=== PATIENT | male | born 1940 | race Caucasian/White ===

== ENCOUNTER → 2016-07-30 12:50 | Outpatient (CLI) | payer MEDICARE, BC ==
[2015-12-24 12:34] VITALS: BMI 28.0
[~2016-07-30 12:50] MED LIST: ADVIL200 MG PO; ALEVE220 MG PO
== END | disposition home or self-care (01) ==
LOC: D.US 12:50
DX: M79.605 Pain in left leg (principal)

== ENCOUNTER 2016-12-25 16:48 | Inpatient (IN) | payer MEDICARE, BC ==
[~2016-12-25] VITALS: Ht 165.1 cm; Wt 62.5 kg
--- NOTE | ~2016-12-25 | CN ---
PATIENT NAME:CAS SERNA MEDICAL RECORD: [id number] : 36 LOCATION:D. D.2138 ADMIT DATE: 12/25/16 ACCOUNT: [id number] CONSULTING PHYSICIAN: CRISTIANE KAUR MD REFERRING PHYSICIAN: AVILA VARGAS DO DATE OF CONSULTATION: 12/26/2016 CONSULT REQUESTING PHYSICIAN: Dr. Cas Vargas. REASON FOR CONSULTATION: Abdmf-ee-pyhcdiy hypoxic respiratory failure, dyspnea on exertion. HISTORY OF PRESENT ILLNESS: Mr. Serna is a 76-year-old gentleman who has history of pulmonary fibrosis, secondary pulmonary hypertension. According to the patient, 2 weeks ago, he was visiting his granddaughter and he walked with her without wearing his oxygen, he became severe shortness of breath. The patient's oxygen was put on and the patient did not seek any medical help. He saw his PCP yesterday and noticed the patient has shortness of breath. According to the patient, he has no fever or any chills, no chest pain, no night sweats. He also is having some orthopnea. There is no swelling of the lower extremities. REVIEW OF SYSTEMS: Mainly in the history of present illness. PAST MEDICAL HISTORY: 1. Pulmonary fibrosis. 2. Chronic hypoxic respiratory failure. 3. Secondary pulmonary hypertension. 4. Possible associated asthma. 5. Ex-smoker. 6. History of pulmonary nodule. PAST SURGICAL HISTORY: 1. Appendectomy. 2. Bilateral knee surgery. ALLERGIES: There are no known drug allergies. PRESENT MEDICATIONS: On [employer] is reviewed. PERSONAL AND SOCIAL HISTORY: The patient is an ex-smoker. He is a nondrinker. FAMILY HISTORY: Significant for cardiovascular disease and diabetes. PHYSICAL EXAMINATION: GENERAL: Now, the patient is lying comfortably in bed. He is not in acute distress. VITAL SIGNS: The blood pressure is 106/70, pulse is 61, respiration is 17, temperature 98.1, and SPO2 is 93% on 3 liters nasal cannula. HEENT: Conjunctivae pink, sclerae nonicteric. NECK: Supple, no JVD. CHEST: There are bilateral crackles. No wheezing. HEART: Rhythm regular, normal sound, no murmur. ABDOMEN: Soft. Bowel sounds present. No hepatosplenomegaly. RECTAL: Deferred. CONSULT REPORT [id number] CAS SERNA EXTREMITIES: No cyanosis, no clubbing, no pedal edema. SKIN: Warm, normal turgor. CENTRAL NERVOUS SYSTEM: The patient is awake and alert. There are no obvious cranial nerve abnormality. The gait was not tested. IMAGING: Chest radiograph, there is increased interstitial markings, no acute infiltrates. LABORATORY DATA: CBC; WBC 7, hemoglobin is 13.7, hematocrit 41.8, platelet count is 78. Chemistry; sodium is 139, potassium 4.1, BUN is 16, creatinine 1.2. ProBNP is 5832. IMPRESSION: 1. Tifbo-rj-dmgqzmn hypoxic respiratory failure most likely secondary to; A. Pulmonary edema on the top of B. B. Pulmonary fibrosis consistent with idiopathic pulmonary fibrosis. 2. Pulmonary hypertension. 3. Possible bronchitis with chronic obstructive pulmonary disease exacerbation. 4. History of obstructive sleep apnea. 5. History of pulmonary nodule. RECOMMENDATION: 1. Maximize the nebs medication. 2. Methylprednisolone IV. 3. Empiric antibiotic. 4. Lasix IV. 5. Follow up on the cardiac echo and CTA of the chest. Dr. Jean-Claude last for involving me in the care of Mr. Serna. TRANSINT:[id number] Voice Confirmation ID: [id number] DOCUMENT ID: [id number] CRISTIANE KAUR MD CC: AVILA VARGAS DO [id number] DICTATION DATE: 12/26/16 1345 OPERATING ENGINEER: 12/26/16 1524 ADM IN [place] [id number] [place] [id number]
--- NOTE | ~2016-12-25 | EC ---
PATIENT:JULIANA SERNA DATE OF SERVICE: 12/25/16 SEX: M MEDICAL RECORD: [id number] DATE OF : 36 LOCATION:D.M2 D.213 AGE OF PATIENT: 76 ADMISSION DATE: 12/25/16 REFERRING PHYSICIAN: INTERPRETING PHYSICIAN: MARI DOLAN MD ECHOCARDIOGRAM REPORT ECHO CHARGES 4 ECHO COMPLETE CLINICAL DIAGNOSIS: SOB/CHF ECHOCARDIOGRAPHIC MEASUREMENTS (adult normal given) AC root (d.<3.7cm) 3.5 cm LV Septum d (<1.2 cm> 1.4 cm Valve Excursion 1.9 cm LV Septum (systole) 1.8 cm Left Atria (s.<4.0cm> 2.6 cm LVPW d(<1.2cm) 1.4 cm RV (d.<2.3cm) 3.0 cm LVPW (sytole) 1.8 cm LV diastole(<5.6CM) 4.1 cm MV E-F(>70mm/sec) cm LV systole 2.3 cm LVOT Diameter 1.9 cm MV exc.(>10mm) cm Est.ejection fraction (50-75%) % Pericardial Effusion N DOPPLER: LVIT cm/sec A 78.0 cm/sec E 50.0 cm/sec LA cm/sec RVSP 92.0 mmHg LVOT 76.0 cm/sec AOP1/2T m/s Asc. Ao 112 cm/sec RVOT 58.0 cm/sec RA cm/sec PA 64.0 cm/sec AV Gradient Peak 5.0 mmHg AV Mean 2.5 mmHg AV Area 1.8 cm MV Gradient Peak 2.5 mmHg MV Mean 0.91 mmHg MV Area cm COMMENTS: Recreation Leader: Karina PALACI[address] Road Machinery Inspector: 3 Dr. Orellana TAPE# PACS DATE OF SERVICE: 12/27/2016 Adequate 2D echo, color flow and spectral Doppler, and M-mode. Borderline LVH. LV internal dimensions are normal. Wall motion is normal. EF is equal to 55%. Aortic valve is tricuspid. No stenosis by Doppler interrogation. The left atrium is normal at 2.6 cm. Mitral valve shows no prolapse. Trace MR. Right-sided chambers are dilated. Atcxhutn-ea-zbmurp TR. PA systolic pressures are estimated greater than or equal to 92 mmHg via the continuity equation. TRANSINT:[id number] Voice Confirmation ID: [id number] DOCUMENT ID: [id number] ECHOCARDIOGRAM REPORT [id number] JULIANA SERNA GREGORY A MD CC: [id number] DICTATION DATE: 12/27/16 1003 EASEMENT WORKER: 12/27/16 1048 ADM IN [facility] [address] [place] [id number]
--- NOTE | ~2016-12-25 | CN ---
PATIENT NAME:JULIANA SERNA MEDICAL RECORD: [id number] : 36 LOCATION:D. D.2138 ADMIT DATE: 12/25/16 ACCOUNT: [id number] CONSULTING PHYSICIAN: MARI DOLAN MD REFERRING PHYSICIAN: AVILA VARGAS DO DATE OF CONSULTATION: 12/26/2016 HISTORY OF PRESENT ILLNESS: A 76-year-old gentleman well known to me with a history of pulmonary hypertension, right heart catheterization done approximately a year ago showed no reversibility with adenosine, only fixed obstruction. He has been having progressively worsening dyspnea, actually had an episode of celestine syncope when attempting to walk upstairs without his portable oxygen. General downward course, with increasing O2 demands. We are asked to see him concerning his cardiovascular status. PAST MEDICAL HISTORY: 1. Otherwise includes a history of hypertension. 2. Pulmonary hypertension. 3. Dyslipidemia. 4. Diabetes mellitus. ALLERGIES: None known. SOCIAL HISTORY: , lives in [place] currently, has actually been able to take care of his ADLs, although at a slower pace. He does try to walk on a regular basis for exercise. REVIEW OF SYSTEMS: The patient reports easy bruising but reports no swollen glands. The patient reports no fever, no night sweats, no significant weight gain, no significant weight loss. No significant exercise tolerance. The patient reports no dry eyes, no irritation, no vision change. Patient reports no difficulty hearing and no ear pain. Patient reports no frequent nose bleeds or nose and sinus problems. Patient reports on arm pain on exertion. No shortness of breath while lying down. No history of heart murmur. Patient reports no cough, no wheezing or coughing up blood. Patient reports no abdominal pain, no vomiting. Normal appetite. No diarrhea and not vomiting blood. No nausea and no constipation. Patient reports no incontinence. No difficulty urinating. No hematuria. No increased frequency. Patient reports no muscle aches. No weakness, no arthralgias, no back pain. No swelling of the extremities. Patient reports no abnormal mole, no jaundice, no rashes. Reports no loss of consciousness. No weakness and no numbness. No seizures, dizziness, or headaches. The patient reports no depression, no sleep disturbance, feeling safe in a relationship and no alcohol abuse. Patient reports on fatigue. Reports no runny nose or sinus pressure. No itching, no hives, and no frequent sneezing. PHYSICAL EXAMINATION: GENERAL: Pleasant gentleman who appears stated age, comfortable at rest, on 3 liters O2. HEENT: Normocephalic, atraumatic. NECK: No JVD or bruit. HEART: Regular, loud S2. LUNGS: Fairly good air excursion. ABDOMEN: Soft, nontender. EXTREMITIES: Pulse 2+. No edema. CONSULT REPORT [id number] JULIANA SERNA NEUROLOGIC: Grossly intact. IMPRESSION: Pulmonary hypertension. Fortunately, this was fixed at the time of right heart catheterization, no evidence of coronary artery disease at that time. LV function was normal. I agree with current symptomatic therapy. Further recommendations based on above. TRANSINT:[id number] Voice Confirmation ID: [id number] DOCUMENT ID: [id number] MARI DOLAN MD CC: [id number] DICTATION DATE: 12/26/16928 CLINICAL UNIT COORDINATOR: 12/26/16 1016 ADM IN [facility] [address] [place] [id number]
--- NOTE | 2016-12-25 17:15 | NUR ---
PT RECIEVED TO ROOM FROM ADMISSIONS. RR EVEN AND UNLABORED. PT ON PERSONAL PORTABLE O2. PT DENIES PAIN. PLACED IN SCRUBS AND INTRODUCED SELF. VALUABLES SENT HOME WITH FAMILY. ASSESSMENT AND HX COMPLETED. WILL CTM PT.
[2016-12-25 17:33] VITALS: BP 124/76
--- NOTE | 2016-12-25 17:52 | NUR ---
STARTED PIV TO LEFT AC 22 G X1 STICK. DSNG ADHERED TO SKIN SIGNED AND DATED SWAB CAPS IN USE
[2016-12-25 18:03] LABS: BASOPHILS 0.2 % (0-2); EOSINOPHILS 1.4 % (0-7); HEMATOCRIT 51.3 % (42.0-54.0); HEMOGLOBIN 16.9 g/dL (13.5-17.5); IMMATURE GRANULOCYTES 0.2 % (0-5); LYMPHOCYTES 31.1 % (15-50); MCH 31.5 pg (26.0-34.0); MCHC 32.9 g/dL (31.0-37.0); MCV 95.5 fL (80.0-100.0); MEAN PLATELET VOLUME 10.4 fL (7.4-10.4); MONOCYTES 12.5 % (2-11); NEUTROPHILS 54.6 % (40-80); PLATELET COUNT 197 10x3/uL (130-400); RBC 5.37 10x6/uL (4.20-6.10); RDW 16.5 % (11.5-14.5); WBC 9.3 10x3/uL (4.8-10.8)
[2016-12-25 18:27] LABS: ALBUMIN 3.7 g/dL (3.4-5.0); ANION GAP 15.8 mmol/L (8-16); BILIRUBIN - TOTAL 1.81 mg/dL (0.2-1.3); CALCIUM 9.3 mg/dL (8.5-10.1); CARBON DIOXIDE 26.3 mmol/L (21.0-32.0); CREATININE - SERUM 1.3 mg/dL (0.6-1.3); POTASSIUM - SERUM 4.1 mmol/L (3.5-5.1)
[2016-12-25 18:28] LABS: CKMB 1.8 U/L (0.0-3.6); CREATINE KINASE 90 UL (21-232); TROPONIN-I 0.021 ng/mL (0.000-0.060)
--- NOTE | 2016-12-25 19:43 | NUR ---
PT IN BED. RAISED TEMP IN ROOM PER REQUEST. DENIES FURTHER NEEDS. WILL CONTINUE TO MONITOR.
--- NOTE | 2016-12-26 00:22 | NUR ---
PT RESTING WITH EYES CLOSED. RESP EVEN AND REGULAR. SR UP X2,CALL LIGHT WITHIN REACH.
[2016-12-26 00:30] LABS: CKMB 1.2 U/L (0.0-3.6); CREATINE KINASE 66 UL (21-232); TROPONIN-I < 0.017 ng/mL (0.000-0.060)
[2016-12-26 04:00] VITALS: BP 120/60
[2016-12-26 05:30] LABS: BASOPHILS 0.4 % (0-2); EOSINOPHILS 1.6 % (0-7); HEMATOCRIT 41.8 % (42.0-54.0); HEMOGLOBIN 13.7 g/dL (13.5-17.5); IMMATURE GRANULOCYTES 0.1 % (0-5); LYMPHOCYTES 29.3 % (15-50); MCHC 32.8 g/dL (31.0-37.0); MCV 94.6 fL (80.0-100.0); MEAN PLATELET VOLUME 10.4 fL (7.4-10.4); MONOCYTES 14.5 % (2-11); NEUTROPHILS 54.1 % (40-80); PLATELET COUNT 178 10x3/uL (130-400); RBC 4.42 10x6/uL (4.20-6.10); RDW 16.2 % (11.5-14.5)
[2016-12-26 06:19] LABS: ALKALINE PHOSPHATASE 64 U/L (46-116); BILIRUBIN - TOTAL 1.37 mg/dL (0.2-1.3); CALC OSMOLALITY 278 mosm/kg (275-300); CALCIUM 8.1 mg/dL (8.5-10.1); CARBON DIOXIDE 24.2 mmol/L (21.0-32.0); CHLORIDE - SERUM 108 mmol/L (98-107); CKMB 1.1 U/L (0.0-3.6); CREATINE KINASE 56 UL (21-232); CREATININE - SERUM 1.2 mg/dL (0.6-1.3); GLUCOSE 92 mg/dL (74-106); POTASSIUM - SERUM 4.1 mmol/L (3.5-5.1); PROTEIN - SERUM 6.2 g/dL (6.4-8.2); SODIUM 139 mmol/L (136-145); TROPONIN-I 0.022 ng/mL (0.000-0.060); UREA NITROGEN 16 mg/dL (7-18); eGFR NON AFRICAN AMERICAN 62 mL/min (90-120)
[2016-12-26 06:23] LABS: ALBUMIN 2.6 g/dL (3.4-5.0); ALT (SGPT) 21 U/L (10-68)
--- NOTE | 2016-12-26 07:46 | NUR ---
AM ROUNDS - PT IS AWAKE IN BED. IV TO RIGHT AC, NS AT 50CC/HR. O2 AT 3L VIA NC. NO NEEDS AT THIS TIME. BED AT LOWEST POSITION. CALL NGUYEN IN USE/REACH. SIDE RAILS UP X2. WILL CONTINUE TO MONITOR
[2016-12-26 08:10] VITALS: BP 107/62
[2016-12-26 12:32] VITALS: BP 106/70
[2016-12-26 13:03] VITALS: Ht 165.1 cm; Wt 62.5 kg
--- NOTE | 2016-12-26 15:13 | NUR ---
PT IN BED WITH NO NEEDS AT THIS TIME. WILL CONTINUE TO MONITOR
[2016-12-26 15:39] VITALS: BP 104/53
--- NOTE | 2016-12-26 19:41 | NUR ---
PT IN BED. PROVIDED A SANDWICH PER REQUEST DENIES FURTHER NEEDS AT THIS TIME. WILL CONTINUE TO MONITOR.
[2016-12-26 20:32] VITALS: BP 109/66
--- NOTE | 2016-12-26 22:41 | NUR ---
PT LEFT FLOOR AT THIS TIME FOR CT.
--- NOTE | 2016-12-26 22:55 | NUR ---
PT RETURNED TO THE FLOOR AT THIS TIME FROM CT
[2016-12-27 01:18] VITALS: BP 105/62
[2016-12-27 04:34] LABS: BASOPHILS 0 % (0-2); EOSINOPHILS 0 % (0-7); HEMATOCRIT 46.2 % (42.0-54.0); HEMOGLOBIN 15.5 g/dL (13.5-17.5); IMMATURE GRANULOCYTES 0.2 % (0-5); MCH 31.4 pg (26.0-34.0); MCHC 33.5 g/dL (31.0-37.0); MCV 93.7 fL (80.0-100.0); MEAN PLATELET VOLUME 10.7 fL (7.4-10.4); MONOCYTES 4.3 % (2-11); NEUTROPHILS 83.5 % (40-80); PLATELET COUNT 196 10x3/uL (130-400); RBC 4.93 10x6/uL (4.20-6.10); RDW 15.8 % (11.5-14.5)
[2016-12-27 04:56] LABS: BILIRUBIN - TOTAL 1.09 mg/dL (0.2-1.3); CALCIUM 8.6 mg/dL (8.5-10.1); CARBON DIOXIDE 25.8 mmol/L (21.0-32.0); CREATININE - SERUM 1.4 mg/dL (0.6-1.3); MAGNESIUM - SERUM 2.2 mg/dL (1.8-2.4); PHOSPHOROUS 4.1 mg/dL (2.5-4.9); POTASSIUM - SERUM 3.8 mmol/L (3.5-5.1); PROTEIN - SERUM 7.4 g/dL (6.4-8.2)
[2016-12-27 05:55] VITALS: BP 115/66
[2016-12-27 08:05] VITALS: BP 111/66
--- NOTE | 2016-12-27 08:27 | NUR ---
PT AOX4 RESP EVEN AND NONLABORED PT DENIES NEED AT THIS TIME IV TO RIGHT FOREARM PATENT AND INTACT AT THIS TIME SRX2 BED AT LOWEST SETTING CALL LIGHT WITHIN REACH WILL CONTINUED TO MONITOR
[2016-12-27 15:09] VITALS: BP 102/69
[2016-12-27 20:35] VITALS: BP 112/62
--- NOTE | 2016-12-27 23:34 | NUR ---
RESTING WITH NO DISTRESS. BEDTIME MED OF IV SOLUMEDROL ADMINISTERED. DENIES PAIN OR DISCOMFORT. CPOC.
[2016-12-28 00:08] VITALS: BP 107/59
--- NOTE | 2016-12-28 02:47 | NUR ---
RESTING WITH EYES CLOSED. RESPS EVEN/NONLABORD. NO DISTRESS. CPOC.
[2016-12-28 04:05] LABS: BASOPHILS 0 % (0-2); EOSINOPHILS 0 % (0-7); HEMATOCRIT 46.1 % (42.0-54.0); HEMOGLOBIN 15.6 g/dL (13.5-17.5); IMMATURE GRANULOCYTES 0.2 % (0-5); LYMPHOCYTES 6.5 % (15-50); MCH 31.4 pg (26.0-34.0); MCHC 33.8 g/dL (31.0-37.0); MCV 92.8 fL (80.0-100.0); MEAN PLATELET VOLUME 10.4 fL (7.4-10.4); MONOCYTES 4.4 % (2-11); NEUTROPHILS 88.9 % (40-80); PLATELET COUNT 204 10x3/uL (130-400); RBC 4.97 10x6/uL (4.20-6.10); RDW 15.8 % (11.5-14.5)
[2016-12-28 04:06] LABS: WBC 14.8 10x3/uL (4.8-10.8)
[2016-12-28 04:23] LABS: ANION GAP 12.7 mmol/L (8-16); CARBON DIOXIDE 28.2 mmol/L (21.0-32.0); CREATININE - SERUM 1.3 mg/dL (0.6-1.3); POTASSIUM - SERUM 3.9 mmol/L (3.5-5.1)
[2016-12-28 04:37] VITALS: BP 98/61
--- NOTE | 2016-12-28 07:48 | NUR ---
RECIEVED REPORT ON PATIENT, PATIENT IS ALERT AND ORIENTED AT THIS TIME, PATIENT PULLED OUT IV IN R AC. WILL RESITE IV. PATIENT IS ON 3L/MIN VIA NC OF O2 WITH NAD NOTED. SR ON TELEMETRY WITH A RATE OF 71. PATIENT DENIES ANY NEEDS OR COMPLAINTS AT THIS TIME. BED LOW AND LOCKED. CALL LIGHT IN REACH. CPOC
[2016-12-28 08:00] VITALS: BP 103/55
--- NOTE | 2016-12-28 09:05 | NUR ---
MORNING MEDICATIONS GIVEN PER ORDER. DENIES ANY NEEDS. CPOC
[2016-12-28 12:00] VITALS: BP 122/56
--- NOTE | 2016-12-28 12:13 | NUR ---
PATIENT SITTING UP IN BED EATING LUNCH. DENIES ANY NEEDS. CPOC
--- NOTE | 2016-12-28 14:30 | NUR ---
PATIENT SLEEPING AT THIS TIME, NAD NOTED. SR ON MONITOR WITH A RATE OF 95. WILL CONT TO MONITOR PATIENT, CPOC
[2016-12-28 16:00] VITALS: BP 108/49
--- NOTE | 2016-12-28 17:50 | NUR ---
PATIENT SITTING UP IN BED EATING DINNER. DENIES ANY NEEDS AT THIS TIME. WILL CONT TO MONITOR. CPOC
--- NOTE | 2016-12-28 18:43 | NUR ---
PATIENT WATCHING TV, DENIES ANY NEEDS OR PAIN. CPOC
[2016-12-28 19:00] VITALS: BP 113/67
--- NOTE | 2016-12-28 19:50 | NUR ---
SHIFT ASSESSMENT COMPLETE. A&O X4 WITH NO SIGNS OF ACUTE DISTRESS NOTED. PT STATES THAT HE IS NOT IN ANY PAIN AT THIS TIME. S1S2 AUDIBLE, HR 85, NORMAL SINUS VIA TELEMETRY. CLEAR LUNG SOUNDS THROUGHOUT ALL LOBES. BS ACTIVE X4. ABD FALT AND NONTENDER TO TOUCH. RADIAL AND PEDAL PULSES PALP. NC @ 2 L/MIN. GENERALIZED SCABS/SORES ON ARMS AND TOP OF HEAD. GENERALIZED BRUSING ON BOTH ARMS. DRESSING ON R MARMOLEJO CDI WITH NO SIGNS OF INFECTION. REPOSITIONED FOR COMFORT. PT DENIES ANY REQUESTS AT THIS TIME. WILL CONT WITH POC.
--- NOTE | 2016-12-28 23:35 | NUR ---
PT RESTING ON R SIDE WITH NO SIGNS OF ACUTE DISTRESS NOTED. CALL LIGHT IN REACH. BED IN LOWEST POSITION. WILL CONT WITH POC.
[2016-12-29] VITALS: BP 103/58
--- NOTE | 2016-12-29 02:30 | NUR ---
PT RESTING ON R SIDE WITH NO SIGNS OF DISTRESS NOTED. WILL CONT WITH POC. CALL LIGHT IN REACH. BED IN LOWEST POSITION.
[2016-12-29 04:32] VITALS: BP 106/59; BP 97/55
--- NOTE | 2016-12-29 05:00 | NUR ---
PT LYING ON R SIDE WITH NO SIGNS OF ACUTE DISTRESS NOTED. WILL CONT WITH POC. CALL LIGHT IN REACH. BED IN LOWEST POSITION.
--- NOTE | 2016-12-29 05:59 | NUR ---
AM MEDS ADMINISTERED. REFILLED REFRESHMENTS. PT IS IN GOOD SPIRITS AND DENIES ANY REQUESTS AT THIS TIME. WILL CONT WITH POC. CALL LIGHT IN REACH.
--- NOTE | 2016-12-29 07:31 | NUR ---
RECIEVED REPORT ON PATIENT, PATIENT IS SLEEPING AT THIS TIME. NAD NOTED AT THIS TIME. PATIENT IS SR ON MONITOR WITH A RATE OF 68. ON 4L/MIN VIA NC. WILL CONT TO MONITOR PATIENT. BED LOW AND LOCKED. CPOC
--- NOTE | 2016-12-29 07:59 | NUR ---
RECEIVED CASE MANAGEMENT CONSULT REQUESTING US TO FIND ASSISTANCE WITH PATIENT OBTAINING HIS SILDENAFIL (REVATION). WENT TO THE [employer] WEBSITE AND PRINTED OFF A DISCOUNT CARD IN WHICH THE PATIENT WOULD PAY " LITTLE $0" FOR THE MEDICATION. THIS WILL BE GIVEN TO THE PATIENT.
[2016-12-29 08:48] VITALS: BP 103/58
--- NOTE | 2016-12-29 11:49 | NUR ---
PATIENT SITTING UP IN BED, DENIES ANY PAINOR NEEDS. CPOC
[2016-12-29 12:04] VITALS: BP 100/55
[2016-12-29] MEDS ORDERED: BROVANA15 MCG/2 M INH (14:58)
[2016-12-29] MEDS ORDERED: REVATIO20 MG PO (14:58)
--- NOTE | 2016-12-29 14:58 | NUR ---
Patient Name: JULIANA SERNA Admission Status: Urgent Accout number: [id number] Admission Date: 12-25-2016 : 1940 Admission Diagnosis: Attending: AVILA VARGAS Current LOS: 4 Anticipated DC Date: 12-29-2016 Planned Disposition: Home with Home Health Primary Insurance: MEDICARE A & B PLANNED EXTERNAL PROVIDER: [facility] Discharge Planning Comments: * Is the patient Alert and Oriented? Yes 0 * How many steps to enter\exit or inside your home? NONE 0 * PCP DR. VARGAS 0 * Pharmacy [facility] OR [facility] IN [place] 0 * Preadmission Environment Home Alone 0 * ADLs Independent 0 * Equipment Oxygen 0 * Other Equipment [facility] * List name and contact numbers for known caregivers / representatives who currently or will assist patient after discharge: GEOR[place]IA PORRAS, DTR, DAGOBERTO SERNA, BROTHER, 0 * Community resources currently utilized None 0 * Please name any agencies selected above. NONE 0 * Additional services required to return to the preadmission environment? No 0 * Can the patient safely return to the preadmission environment? Yes 0 * Has this patient been hospitalized within the prior 30 days at any hospital? No 0 CM RECEIVED HOME HEALTH ORDER, MET WITH PT IN ROOM TO DISCUSS DISCHARGE PLANNING AND NEEDS. PT REPORTS LIVING AT HOME INDEPENDENTLY AND ALONE. PT HAS HOME AND PORTABLE OXYGEN FROM [facility]; PT HAS NO OUTSIDE SERVICES ASSISTING IN THE HOME. CM DISCUSSED AVAILABILITY OF HOME HEALTH, REHAB SERVICES AND MEDICAL EQUIPMENT. PT WOULD LIKE HOME HEALTH IF THE DOCTOR FEELS IT IS NECESSARY. PT HAS NO PREFERENCE ON PROVIDER, CHOICE SIGNED. PT REPORTS FAMILY WILL PICK HIM UP FOR DISCHARGE HOME. IMPORTANT MESSAGE FROM MEDICARE PROVIDED AND EXPLAINED. PT REPORTS HE IS NOT YET CONVINCED THAT HE NEEDS THE MEDICATION THAT THE DOCTOR IS PRESCRIBING AND REPORTS HE FEELS BETTER WITHOUT MEDICATIONS AND DOES NOT TAKE REGULAR MEDICATIONS IN HIS DAILY LIFE. PT REPORTS HAVING TAKEN ONLY 5 PRESCRIPTIONS IN HIS LIFE AND HAS NO CURRENT PRESCRIPTION DRUG COVERAGE. PT REPORTS HAVING THE PRESCRIPTION ASSISTANCE FORM THAT WAS PROVDIED EARLIER TO HIM. CM CALLED [facility], , SPOKE TO FER AND PROVIDED HOME HEALTH REFERRAL. FER TOOK REFERRAL AND WILL FORWARD ALL INFORMATION TO THE [facility] OFFICE FOR HOME HEALTH ADMISSION AT PT'S HOME IN [place]. CM FAXED REFERRAL TO [facility] AT [phone]. FOR DISCHARGE, NOTIFY [facility] AT [phone], FAX DISCHARGE INFORMATION TO [facility] AT [phone]. Mold Changer: Valentin Agosto
[2016-12-29] MEDS ORDERED: IPRAT-ALBUT 0.5-3 ML UPD (14:59)
[2016-12-29] MEDS ORDERED: PULMICORT0.5 MG/21 UPD (14:59)
[2016-12-29] MEDS ORDERED: OMNICEF300 MG PO (15:02)
[2016-12-29 16:17] VITALS: BP 117/52
--- NOTE | 2016-12-29 17:22 | NUR ---
PATIENT GIVEN DC INSTRUCTIONS. IV DC WITH CATH TIP INTACT. PATIENT DAUGHTER HERE FOR PICKUP.
== END 2016-12-29 17:23 | disposition home health service (06) | DRG 291 ==
LOC: D.M2 16:48
PROVIDERS: Family Medicine; ADMIT Family Medicine
DX: I13.0 Hypertensive heart and chronic kidney disease with heart failure and stage 1 through stage 4 chronic kidney disease, or unspecified chronic kidney disease (principal); J96.21 Acute and chronic respiratory failure with hypoxia; J44.1 Chronic obstructive pulmonary disease with (acute) exacerbation; J44.0 Chronic obstructive pulmonary disease with (acute) lower respiratory infection; I27.2 Other secondary pulmonary hypertension; I50.9 Heart failure, unspecified; J84.10 Pulmonary fibrosis, unspecified; N18.9 Chronic kidney disease, unspecified; E11.22 Type 2 diabetes mellitus with diabetic chronic kidney disease; I08.1 Rheumatic disorders of both mitral and tricuspid valves; E78.5 Hyperlipidemia, unspecified; I73.00 Raynaud's syndrome without gangrene; J20.9 Acute bronchitis, unspecified; Z87.891 Personal history of nicotine dependence